=== PATIENT | male | born 2000 | race Caucasian/White ===

== ENCOUNTER 2019-03-06 05:55 | Emergency (ER) | payer OTHER ==
[~2019-03-06] VITALS: Ht 185.4 cm; Wt 59.1 kg
[2019-03-06 05:59] VITALS: Ht 185.4 cm; Wt 59.1 kg
[2019-03-06 07:49] VITALS: BP 124/69
== END 2019-03-06 07:50 | disposition home or self-care (01) ==
LOC: D.ER 05:55
DX: R09.89 Other specified symptoms and signs involving the circulatory and respiratory systems (principal); R11.10 Vomiting, unspecified